=== PATIENT | female | born 1935 | race Caucasian/White ===

== ENCOUNTER 2019-07-20 10:35 | Day surgery (SDC) | payer MEDICARE, OTHER ==
[2019-07-19 15:58] LABS: BASOPHILS % (AUTO) 0.7 % (0-1); EOSINOPHILS # (AUTO) 0.1 X10'3 (0-0.9); EOSINOPHILS % (AUTO) 1.1 % (0-6); HEMATOCRIT 34.2 % (35.0-45.0); HEMOGLOBIN 11.3 g/dl (12.0-16.0); LYMPHOCYTES % (AUTO) 14.5 % (21-51); MEAN CORPUSCULAR HEMOGLOBIN 28.7 PG (27.0-31.0); MEAN CORPUSCULAR HGB CONC 33.1 g/dL (33.0-36.5); MEAN CORPUSCULAR VOLUME 86.5 FL (78-98); MEAN PLATELET VOLUME 7.8 FL (7.4-10.4); MONOCYTES # (AUTO) 0.5 X10'3 (0-0.9); MONOCYTES % (AUTO) 8.1 % (2-12); NEUTROPHILS % (AUTO) 75.6 % (42-75); PLATELET COUNT 221 X10'3 (140-440); RED BLOOD COUNT 3.95 X10'6 (4.20-5.60); RED CELL DISTRIBUTION WIDTH 15.4 % (11.5-14.5); WHITE BLOOD COUNT 6.6 X10'3 (4.5-11.0)
[2019-07-19 16:02] LABS: ALBUMIN 3.5 G/DL (3.4-5.0); ANION GAP 8 (8-16); BLOOD UREA NITROGEN 25 MG/DL (7-18); BUN/CREATININE RATIO 20.2 (6.6-38.0); CALCIUM 8.9 MG/DL (8.5-10.1); CHLORIDE 94 MMOL/L (99-107); CREATININE 1.24 MG/DL (0.40-0.90); GLUCOSE 141 MG/DL (70-104); POTASSIUM 3.6 MMOL/L (3.5-5.1); SODIUM 130 MMOL/L (135-145); TOTAL CARBON DIOXIDE 28.5 MMOL/L (24-32); eGFR 41 ML/MIN
[2019-07-19 16:04] LABS: PARTIAL THROMBOPLASTIN TIME 27 SECONDS (22-32)
[~2019-07-20] VITALS: Ht 154.9 cm; Wt 61.0 kg
[2019-07-20] VITALS (9 sets, daily range): BP systolic 109–129; BP diastolic 60–79
[2019-07-20] MEDS ORDERED: normal saline 1,000 ML IV SCH (10:55)
[2019-07-20] MEDS ORDERED: LORazepam 0.5 MG tablet PO PRN (10:55)
[2019-07-20] MEDS ORDERED: diphenhydrAMINE 25mg capsule PO PRN (10:55)
[2019-07-20] MEDS ORDERED: FERR240T15 PO (11:47)
[2019-07-20] MEDS ORDERED: VALS40TA2 PO (11:47)
[2019-07-20] MEDS ORDERED: SIMV-42 PO (11:47)
[2019-07-20] MEDS ORDERED: OSC500T PO (11:47)
[2019-07-20] MEDS ORDERED: POTA10CA44 PO (11:47)
[2019-07-20] MEDS ORDERED: FURO-149 PO (11:47)
[2019-07-20] MEDS ORDERED: OMEP40CA13 PO (11:47)
[2019-07-20] MEDS ORDERED: LIDOcaine 1% (10mg/ml)w/preservative injection 20ml MDV ONE (15:37)
[2019-07-20] MEDS ORDERED: fentaNYL/PF 50MCG/1 ML 2ML syringe ONE (15:37)
[2019-07-20] MEDS ORDERED: midazolam 2 mg/2 ml injection ONE (15:37)
[2019-07-20] MEDS ORDERED: iohexol 350MG/ML 100ml bottle IV ONE (15:38)
[2019-07-20] MEDS ORDERED: heparin 1,000 UNITS/NS 500ml 500 ML ONE ×2 (15:38)
== END 2019-07-20 20:10 | disposition home or self-care (01) ==
LOC: SSTAY O 10:35
PROVIDERS: ATTEND Internal Medicine Interventional Cardiology
DX: I25.10 Atherosclerotic heart disease of native coronary artery without angina pectoris (principal); I11.0 Hypertensive heart disease with heart failure; I50.9 Heart failure, unspecified; I34.0 Nonrheumatic mitral (valve) insufficiency; I50.41 Acute combined systolic (congestive) and diastolic (congestive) heart failure; I42.9 Cardiomyopathy, unspecified; E11.9 Type 2 diabetes mellitus without complications; I27.20 Pulmonary hypertension, unspecified; E78.5 Hyperlipidemia, unspecified; Z79.899 Other long term (current) drug therapy; Z88.8 Allergy status to other drugs, medicaments and biological substances
CPT/HCPCS: 36415; 80048; 85025; 85610; 85730; 93005; 93454; 99152; 99153; C1760; C1769; J1644; J2001; J2250; J3010; J7030; Q0163; Q9967; A6258